=== PATIENT | male | born 1980 | race Two or more races ===

== ENCOUNTER 2017-11-03 13:54 | Emergency (ER) | payer SELFPAY ==
[~2017-11-03] VITALS: Ht 175.3 cm; Wt 98.9 kg
--- NOTE | 2017-11-03 14:15 | NUR ---
A/OX4, C/O CP NOTED THIS AM, WITH ANXIETY; " FEELS BLOATED, WITH LEFT ARM NUMBNESS AND BILATERAL LEG WEAKNESS" ; USED [facility] LAST WEEK IN [place] . PT APPEARS ANXIOUS. WILL CONT TO MONITOR
--- NOTE | 2017-11-03 14:50 | NUR ---
Patient discharged to home in stable condition. Written and verbal after care instructions given. Patient verbalizes understanding of instruction.
[2017-11-03 15:12] VITALS: BP 128/98
== END 2017-11-03 14:50 | disposition home or self-care (01) ==
LOC: ER 13:55
DX: F41.1 Generalized anxiety disorder (principal); R00.2 Palpitations; R06.02 Shortness of breath
CPT/HCPCS: A4606; Z7610